=== PATIENT | male | born 1985 | race Caucasian/White ===

== ENCOUNTER 2017-09-03 17:23 | Inpatient (IN) | payer BC, OTHER ==
[~2017-09-03] VITALS: Ht 182.9 cm; Wt 71.7 kg
[2017-09-03] MEDS ORDERED: MIRALAX 17 GM POWD.PACK PO PRN (22:30)
[2017-09-03] MEDS ORDERED: diphenhydrAMINE 50 MG CAPSULE PO PRN (22:30)
[2017-09-03] MEDS ORDERED: MAGNESIUM HYDROXIDE 30 ML LIQUID UDC PO PRN (22:30)
[2017-09-03] MEDS ORDERED: METHOCARBAMOL 750 MG TABLET PO PRN (22:30)
[2017-09-03] MEDS ORDERED: ONDANSETRON 4 MG/2 ML VIAL IM PRN (22:30)
[2017-09-03] MEDS ORDERED: BUPRENORPHINE HCL 2 MG TAB.SUBL SL PRN (22:30)
[2017-09-03] MEDS ORDERED: LOPERAMIDE HCL 2 MG CAPSULE PO PRN ×2 (22:30)
[2017-09-03] MEDS ORDERED: ACETAMINOPHEN 325 MG TABLET PO PRN (22:30)
[2017-09-03] MEDS ORDERED: DICYCLOMINE HCL 20 MG TABLET PO PRN (22:30)
[2017-09-03] MEDS ORDERED: DIAZEPAM 10 MG TABLET PO PRN ×2 (22:30)
[2017-09-03] MEDS ORDERED: IBUPROFEN 400 MG TABLET PO PRN (22:30)
[2017-09-03] MEDS ORDERED: LORAZEPAM 2 MG/1 ML VIAL IM PRN (22:30)
[2017-09-03] MEDS ORDERED: ONDANSETRON ODT 4 MG TAB.RAPDIS SL PRN (22:30)
[2017-09-03 22:43] LABS: BASOPHILS # (AUTO) 0.1 K/uL (0.0-8.0); BASOPHILS % (AUTO) 0.6 % (0.0-2.0); EOSINOPHILS # (AUTO) 0.1 K/uL (0.0-0.7); EOSINOPHILS % (AUTO) 1.5 % (0.0-7.0); HEMATOCRIT 42.5 % (36.7-47.1); HEMOGLOBIN 14.6 g/dL (12.5-16.3); LYMPHOCYTES # (AUTO) 3.9 K/uL (20.0-40.0); LYMPHOCYTES % (AUTO) 39.7 % (20.5-51.5); MEAN CORPUSCULAR HEMOGLOBIN 31.1 uug (23.8-33.4); MEAN CORPUSCULAR HGB CONC 34 g/dL (32.5-36.3); MEAN CORPUSCULAR VOLUME 90.7 fL (73.0-96.2); MONOCYTES # (AUTO) 0.7 K/uL (2.0-10.0); MONOCYTES % (AUTO) 7.3 % (0.0-11.0); NEUTROPHILS % (AUTO) 50.9 % (38.5-71.5); PLATELET COUNT (AUTO) 298 K/uL (152-348); RED BLOOD CELL COUNT(AUTO) 4.69 MIL/uL (4.06-5.63); WHITE BLOOD COUNT (AUTO) 9.7 K/uL (3.6-10.2)
[2017-09-03 22:45] VITALS: BP 131/86
[2017-09-03 22:52] LABS: ETHANOL < 3 MG/DL (0-0)
[2017-09-03 22:56] LABS: ALANINE AMINOTRANSFERASE 20 U/L (16-63); ALKALINE PHOSPHATASE 68 U/L (50-136); AMYLASE 99 U/L (25-115); ASPARTATE AMINOTRANSFERASE 20 U/L (15-37); BILIRUBIN,TOTAL 0.3 mg/dL (0.2-1.0); CARBON DIOXIDE 31 mmol/L (21-32); CHLORIDE 100 mmol/L (98-107); CREATININE 1.2 mg/dL (0.6-1.3); GLUCOSE 119 mg/dL (74-106); LIPASE 158 U/L (73-393); MAGNESIUM 1.8 mg/dL (1.8-2.4); POTASSIUM 3.3 mmol/L (3.5-5.1); TOTAL PROTEIN, SERUM 7.9 g/dL (6.4-8.2); UREA NITROGEN, BLOOD 12 mg/dL (7-18)
[2017-09-03 23:07] LABS: THYROID STIMULATING HORMONE 4.665 mIU/mL (0.358-3.740)
[2017-09-04 00:06] VITALS: BP 128/83
[2017-09-04 00:12] LABS: *AMPHETAMINE, URINE POSITIVE (NEGATIVE); *BARBITURATE, URINE NEGATIVE (NEGATIVE); *CANNABINOID, URINE POSITIVE (NEGATIVE); *COCCAINE, URINE NEGATIVE (NEGATIVE); *OPIATE, URINE POSITIVE (NEGATIVE); *PHENCYCLIDINE SCREEN,URINE NEGATIVE (NEGATIVE)
[2017-09-04] MEDS ORDERED: CALC117719 PO (03:17)
[2017-09-04 04:29] VITALS: BP 126/79
[2017-09-04 08:38] VITALS: BP 139/86
[2017-09-04] MEDS: MULTIVITAMINS,THERAPEUTIC TABLET PO SCH (08:43)
[2017-09-04] MEDS: FOLIC ACID 1 MG TABLET PO SCH (08:43)
[2017-09-04] MEDS: DIAZEPAM 5 MG TABLET PO PRN ×2 (08:43→13:09)
[2017-09-04] MEDS ORDERED: TUBERCULIN,PURIF.PROT.DERIV. 5 TU/0.1 ML TEST ID ONE (09:00)
[2017-09-04 13:08] VITALS: BP 150/104
[2017-09-04] MEDS: CLONIDINE HCL 0.1 MG TABLET PO PRN (13:09)
[2017-09-04] MEDS: MAG HYDROX/AL HYDROX/SIMETH 30 ML LIQUID UDC PO PRN (14:00)
[2017-09-04] MEDS: GABAPENTIN 300 MG CAPSULE PO SCH (14:58)
[2017-09-04] MEDS: DIAZEPAM 10 MG TABLET PO SCH ×3 (14:58→21:47)
[2017-09-04 16:55] VITALS: BP 131/92
[2017-09-04 20:08] VITALS: BP 149/94
[2017-09-04] MEDS ORDERED: GABAPENTIN 300 MG CAPSULE PO SCH (21:00)
[2017-09-05 00:14] VITALS: BP 124/87
[2017-09-05] MEDS ORDERED: BUPRENORPHINE HCL 2 MG TAB.SUBL SL PRN (00:15)
[2017-09-05 04:40] VITALS: BP 127/84
[2017-09-05] MEDS: CLONIDINE HCL 0.1 MG TABLET PO PRN (05:07)
[2017-09-05 08:07] LABS: HEPATITIS B SURFACE AG Negative (Negative)
[2017-09-05 08:56] VITALS: BP 144/83
[2017-09-05] MEDS: DIAZEPAM 10 MG TABLET PO SCH ×3 (08:59→23:00)
[2017-09-05] MEDS: FOLIC ACID 1 MG TABLET PO SCH (08:59)
[2017-09-05] MEDS: MULTIVITAMINS,THERAPEUTIC TABLET PO SCH (08:59)
[2017-09-05] MEDS: GABAPENTIN 300 MG CAPSULE PO SCH ×3 (08:59→23:00)
[2017-09-05] MEDS ORDERED: HYDROXYZINE PAMOATE 25 MG CAPSULE PO PRN (09:00)
[2017-09-05] MEDS ORDERED: 5 DAY TAPER BUPRENORPHINE -SERENITY PROTOCOL SL PRN (09:00)
[2017-09-05] MEDS: BUPRENORPHINE HCL 2 MG TAB.SUBL SL SCH ×4 (09:00→23:00)
[2017-09-05 12:27] VITALS: BP 137/86
[2017-09-05 16:23] VITALS: BP 132/80
[2017-09-05 20:10] VITALS: BP 132/81
[2017-09-06 00:15] VITALS: BP 127/77
[2017-09-06 04:18] VITALS: BP 121/79
[2017-09-06 08:46] VITALS: BP 115/78
[2017-09-06] MEDS: BUPRENORPHINE HCL 2 MG TAB.SUBL SL SCH ×3 (08:48→21:12)
[2017-09-06] MEDS: DIAZEPAM 5 MG TABLET PO SCH ×4 (08:48→21:12)
[2017-09-06] MEDS: MULTIVITAMINS,THERAPEUTIC TABLET PO SCH (08:48)
[2017-09-06] MEDS: FOLIC ACID 1 MG TABLET PO SCH (08:48)
[2017-09-06] MEDS: GABAPENTIN 300 MG CAPSULE PO SCH ×3 (08:48→21:12)
[2017-09-06 12:42] VITALS: BP 122/80
[2017-09-06 16:43] VITALS: BP 130/86
[2017-09-06 20:22] VITALS: BP 115/75
[2017-09-06 21:38] LABS: CREATININE 1.3 mg/dL (0.6-1.3); MAGNESIUM 1.9 mg/dL (1.8-2.4); PHOSPHOROUS 4.3 mg/dL (2.5-4.9)
[2017-09-07 00:10] VITALS: BP 127/83
[2017-09-07 04:16] VITALS: BP 132/87
[2017-09-07 08:55] VITALS: BP 116/69
[2017-09-07] MEDS ORDERED: BUPRENORPHINE HCL 2 MG TAB.SUBL SL SCH (09:00)
[2017-09-07] MEDS: FOLIC ACID 1 MG TABLET PO SCH (09:30)
[2017-09-07] MEDS: MULTIVITAMINS,THERAPEUTIC TABLET PO SCH (09:30)
[2017-09-07] MEDS: DIAZEPAM 5 MG TABLET PO SCH ×3 (09:31→21:49)
[2017-09-07] MEDS: GABAPENTIN 300 MG CAPSULE PO SCH ×3 (09:31→21:49)
[2017-09-07 12:00] VITALS: BP 139/85
[2017-09-07] MEDS: BUPRENORPHINE HCL 2 MG TAB.SUBL SL SCH ×2 (14:10→21:49)
[2017-09-07 16:00] VITALS: BP 132/83
[2017-09-07 20:30] VITALS: BP 113/73
[2017-09-08 00:21] VITALS: BP 109/68
[2017-09-08 04:10] VITALS: BP 101/65
[2017-09-08 08:00] VITALS: BP 124/70
[2017-09-08] MEDS: MULTIVITAMINS,THERAPEUTIC TABLET PO SCH (09:44)
[2017-09-08] MEDS: DIAZEPAM 5 MG TABLET PO SCH ×2 (09:44→20:30)
[2017-09-08] MEDS: FOLIC ACID 1 MG TABLET PO SCH (09:44)
[2017-09-08] MEDS: GABAPENTIN 300 MG CAPSULE PO SCH ×3 (09:45→20:31)
[2017-09-08] MEDS: BUPRENORPHINE HCL 2 MG TAB.SUBL SL SCH ×3 (09:46→20:30)
[2017-09-08 12:00] VITALS: BP 135/60
[2017-09-08 16:00] VITALS: BP 140/86
[2017-09-08 20:27] VITALS: BP 131/75
[2017-09-08] MEDS: PRAZOSIN HCL 1 MG CAPSULE PO SCH (20:30)
[2017-09-09 00:15] VITALS: BP 119/79
[2017-09-09 04:13] VITALS: BP 111/63
[2017-09-09 08:00] VITALS: BP 106/62
[2017-09-09] MEDS ORDERED: BUPRENORPHINE HCL 2 MG TAB.SUBL SL SCH (09:00)
[2017-09-09] MEDS: MULTIVITAMINS,THERAPEUTIC TABLET PO SCH (09:20)
[2017-09-09] MEDS: FOLIC ACID 1 MG TABLET PO SCH (09:20)
[2017-09-09] MEDS: GABAPENTIN 300 MG CAPSULE PO SCH ×3 (09:20→20:19)
[2017-09-09] MEDS: MAG HYDROX/AL HYDROX/SIMETH 30 ML LIQUID UDC PO PRN (10:50)
[2017-09-09 12:00] VITALS: BP 144/88
[2017-09-09 16:00] VITALS: BP 132/90
[2017-09-09] MEDS ORDERED: METH-406 PO (18:56)
[2017-09-09] MEDS ORDERED: PRAZ1CAP2 PO (18:56)
[2017-09-09] MEDS ORDERED: HYDR-3895 PO (18:56)
[2017-09-09] MEDS ORDERED: DICY20TA28 PO (18:56)
[2017-09-09] MEDS ORDERED: DIPH50CA37 PO (18:56)
[2017-09-09] MEDS ORDERED: CLON0.1T14 PO (18:56)
[2017-09-09] MEDS ORDERED: IBUP-1953 PO (18:56)
[2017-09-09] MEDS ORDERED: GABA-534 PO (18:56)
[2017-09-09 20:00] VITALS: BP 125/89
[2017-09-09] MEDS: PRAZOSIN HCL 1 MG CAPSULE PO SCH (20:21)
[2017-09-10] VITALS: BP 98/59
[2017-09-10 04:00] VITALS: BP 102/63
[2017-09-10 08:00] VITALS: BP 94/67
[2017-09-10] MEDS: MULTIVITAMINS,THERAPEUTIC TABLET PO SCH (08:47)
[2017-09-10] MEDS: FOLIC ACID 1 MG TABLET PO SCH (08:47)
[2017-09-10] MEDS: GABAPENTIN 300 MG CAPSULE PO SCH (08:47)
== END 2017-09-10 09:30 | disposition other institution (70) | DRG 895 ==
LOC: SRC 20:54
PROVIDERS: ADMIT Internal Medicine; ATTEND Internal Medicine
PROC: HZ2ZZZZ Detoxification Services for Substance Abuse Treatment (ICD-10-PCS; principal; 2017-09-03)
PROC: HZ41ZZZ Group Counseling for Substance Abuse Treatment, Behavioral (ICD-10-PCS; 2017-09-04)
PROC: HZ31ZZZ Individual Counseling for Substance Abuse Treatment, Behavioral (ICD-10-PCS; 2017-09-05)
DX: F10.239 Alcohol dependence with withdrawal, unspecified (principal); I15.9 Secondary hypertension, unspecified; B19.20 Unspecified viral hepatitis C without hepatic coma; E07.81 Sick-euthyroid syndrome; E87.6 Hypokalemia; F11.23 Opioid dependence with withdrawal; Z91.89 Other specified personal risk factors, not elsewhere classified; F17.210 Nicotine dependence, cigarettes, uncomplicated; Y90.0 Blood alcohol level of less than 20 mg/100 ml; Z81.3 Family history of other psychoactive substance abuse and dependence; F13.239 Sedative, hypnotic or anxiolytic dependence with withdrawal, unspecified; E86.0 Dehydration; F12.90 Cannabis use, unspecified, uncomplicated; R73.9 Hyperglycemia, unspecified; R79.89 Other specified abnormal findings of blood chemistry; F15.10 Other stimulant abuse, uncomplicated; F41.9 Anxiety disorder, unspecified
CPT/HCPCS: 36415; 70030-TC; 80307; 80324; 80346; 80349; 80361; 83690; 83735; 84100; 84443; 85025; 86580; 86592; 86705; 86803; 87340; 87806; A4663; G0480